=== PATIENT | male | born 1990 | race Native Hawaiian/Other Pacific Islander ===

== ENCOUNTER 2022-09-09 08:05 | Outpatient (CLI) | payer OTHER | END 2022-09-09 19:11 | disposition home or self-care (01) | LOC: RAD 08:05 | PROVIDERS: ATTEND Internal Medicine | DX: R11.2 Nausea with vomiting, unspecified (principal) ==

== ENCOUNTER 2023-01-06 21:17 | Emergency (ER) | payer OTHER ==
[~2023-01-06] VITALS: Ht 180.3 cm; Wt 103.0 kg
== END 2023-01-06 23:20 | disposition home or self-care (01) ==
LOC: ED 21:17
DX: S90.02XA Contusion of left ankle, initial encounter (principal); S93.402A Sprain of unspecified ligament of left ankle, initial encounter; W01.0XXA Fall on same level from slipping, tripping and stumbling without subsequent striking against object, initial encounter
CPT/HCPCS: 99282; J1885